=== PATIENT | male | born 1960 | race Caucasian/White ===

== ENCOUNTER 2018-12-03 11:50 | Inpatient (IN) | payer BC ==
[~2018-12-03 11:50] MED LIST: DESFLURANE 15 MIN; GLYCOPYRROLATE 0.4 MG INJ; LIDOCAINE 2% (SDV) 5 ML INJ; NEOSTIGMINE 3 MG/3 ML SYRINGE; ROCURONIUM 50 MG INJ
[2018-12-03] MEDS: ACETAMINOPHEN 1000MG/100ML IV 100 ML IVPB (14:15)
[2018-12-03] MEDS ORDERED: PROPOFOL 20 ML (15:26)
[2018-12-03] MEDS ORDERED: ROCURONIUM 50 MG INJ (15:26)
[2018-12-03] MEDS ORDERED: MIDAZOLAM 1 MG/ML 2 ML INJ (15:26)
[2018-12-03] MEDS: ALBUTEROL 0.083% (NEB) 2.5 MG/3 ML AMP HHN (15:28)
[2018-12-03] MEDS ORDERED: MEPERIDINE 25 MG INJ IV (15:30)
[2018-12-03] MEDS ORDERED: ALBUTEROL 0.083% (NEB) 2.5 MG/3 ML AMP HHN (15:30)
[2018-12-03] MEDS ORDERED: LABETALOL HCL 20MG INJ IV (15:30)
[2018-12-03] MEDS ORDERED: hydrALAzine 20 MG INJ IV (15:30)
[2018-12-03] MEDS ORDERED: ONDANSETRON 4 MG INJ IV (15:30)
[2018-12-03] MEDS ORDERED: HYDROmorphONE 0.5 MG/0.5 ML SYG IV ×3 (15:30)
[2018-12-03] MEDS ORDERED: CEFAZOLIN 1 GM INJ (18:15)
[2018-12-03] MEDS ORDERED: ONDANSETRON 4 MG INJ (18:15)
[2018-12-03] MEDS ORDERED: DEXAMETHASONE 4 MG/ML 5 ML INJ ×2 (18:15→20:26)
[2018-12-03] MEDS ORDERED: LABETALOL HCL 20MG INJ ×2 (18:17→18:55)
[2018-12-03] MEDS ORDERED: BUPIVACAINE 0.5%/EPI (SDV) 30 ML INJ (18:37)
[2018-12-03] MEDS: HEPARIN 1000 UNITS/ML 10 ML INJ (18:50)
[2018-12-03] MEDS: THROMBIN (BOVINE) 5,000 UNIT VIAL TP (18:50)
[2018-12-03] MEDS: GELATIN SIZE 100 SPONGE (18:50)
[2018-12-03] MEDS: CEFAZOLIN 1 GM INJ (18:50)
[2018-12-03] MEDS ORDERED: NACL 0.9% 3 ML SYG IV (19:00)
[2018-12-03] MEDS ORDERED: HYDROCODONE/APAP (5/325) TAB PO (19:00)
[2018-12-03] MEDS ORDERED: NALOXONE (0.4 MG/ML) INJ IV (19:00)
[2018-12-03] MEDS: DOCUSATE SODIUM 100 MG CAP PO ×2 (19:00→23:07)
[2018-12-03] MEDS ORDERED: ESMOLOL 10 ML (19:37)
[2018-12-03] MEDS ORDERED: ROPIVACAINE 0.5 % 30 ML VIAL (20:26)
[2018-12-03] MEDS ORDERED: FENTAnyl 50 MCG/ML VIAL (21:12)
[2018-12-03] MEDS: HYDROmorphONE 0.2 MG/ML PCA IV (22:14)
[2018-12-03] MEDS: HYDROmorphONE 1 MG/ML SYG IV (22:27)
[2018-12-03] MEDS ORDERED: KETOROLAC 60 MG INJ IM (23:00)
[2018-12-03] MEDS: KETOROLAC 30 MG INJ IV (23:11)
[2018-12-04] MEDS: ONDANSETRON 4 MG INJ IV (00:48)
[2018-12-04] MEDS: SOD CHLORIDE 0.9% 1,000 ML IV ×3 (00:49→21:43)
[2018-12-04] MEDS: CEFAZOLIN 2 GM/50 ML (PMX) 50 ML IVPB ×4 (00:59→21:37)
[2018-12-04] MEDS: HYDROmorphONE 0.2 MG/ML PCA IV ×3 (02:23→21:14)
[2018-12-04 05:56] LABS: HEMATOCRIT 35.8 % (42.0-52.0); HEMOGLOBIN 11.8 g/dl (14.0-18.0)
[2018-12-04 06:20] LABS: ANION GAP 4 (5-13); BLOOD UREA NITROGEN 17 mg/dl (7-20); CALCIUM 8.5 mg/dl (8.4-10.2); CARBON DIOXIDE 27 mmol/L (21-31); CHLORIDE 106 mmol/L (97-110); CREATININE 0.65 mg/dl (0.61-1.24); Estimated GFR > 60 mL/min (>60); GLUCOSE 143 mg/dl (70-220); POTASSIUM 4.7 mmol/L (3.5-5.1); SODIUM 137 mmol/L (135-144)
[2018-12-04] MEDS: KETOROLAC 30 MG INJ IV ×2 (07:48→14:38)
[2018-12-04] MEDS: DOCUSATE SODIUM 100 MG CAP PO ×2 (09:16→21:37)
[2018-12-04] MEDS ORDERED: ROPIVACAINE 0.5 % 30 ML VIAL ×2 (14:42→15:03)
[2018-12-04] MEDS ORDERED: FENTAnyl 50 MCG/ML VIAL ×4 (15:22→19:10)
[2018-12-04] MEDS ORDERED: GLYCOPYRROLATE 0.4 MG INJ (15:22)
[2018-12-04] MEDS ORDERED: ROCURONIUM 50 MG INJ (15:22)
[2018-12-04] MEDS ORDERED: CEFAZOLIN 1 GM INJ (15:22)
[2018-12-04] MEDS ORDERED: SUCCINYLCHOLINE CHLORIDE 100 MG/5 ML SYG IV (15:22)
[2018-12-04] MEDS ORDERED: NEOSTIGMINE 3 MG/3 ML SYRINGE (15:22)
[2018-12-04] MEDS ORDERED: PROPOFOL 20 ML (15:22)
[2018-12-04] MEDS ORDERED: DEXAMETHASONE 4 MG/ML 5 ML INJ (15:23)
[2018-12-04] MEDS ORDERED: METOCLOPRAMIDE 10 MG INJ (15:23)
[2018-12-04] MEDS ORDERED: ONDANSETRON 4 MG INJ (15:23)
[2018-12-04] MEDS ORDERED: MIDAZOLAM 1 MG/ML 2 ML INJ (15:23)
[2018-12-04] MEDS ORDERED: LIDOCAINE 100 MG SYRINGE (15:24)
[2018-12-04] MEDS: ROPIVACAINE 0.5 % 30 ML VIAL INJ (16:17)
[2018-12-04] MEDS: POLYMYXIN/BACITRACIN 1L IRRIG (16:18)
[2018-12-04] MEDS ORDERED: THROMBIN 5000 UNIT VIAL (16:30)
[2018-12-04] MEDS: GELATIN SIZE 100 SPONGE (16:38)
[2018-12-04] MEDS: THROMBIN 5000 UNIT VIAL TOP (16:39)
[2018-12-04] MEDS ORDERED: LABETALOL HCL 20MG INJ IV (17:00)
[2018-12-04] MEDS ORDERED: HALOPERIDOL 5 MG INJ IV (17:00)
[2018-12-04] MEDS ORDERED: hydrALAzine 20 MG INJ IV (17:00)
[2018-12-04] MEDS ORDERED: HYDROmorphONE 1 MG/5 ML IV SYRINGE IV (17:00)
[2018-12-04] MEDS ORDERED: OXYCODONE/ACETAMINOPHEN (5/325) TAB PO (17:00)
[2018-12-04] MEDS ORDERED: METOCLOPRAMIDE 10 MG INJ IV (17:00)
[2018-12-04] MEDS ORDERED: LORAZEPAM 2 MG INJ IV (17:00)
[2018-12-04] MEDS ORDERED: ALBUTEROL 0.083% (NEB) 2.5 MG/3 ML AMP HHN (17:00)
[2018-12-04] MEDS ORDERED: FENTAnyl 50 MCG/ML VIAL IV (17:00)
[2018-12-04] MEDS ORDERED: ONDANSETRON 4 MG INJ IV (17:00)
[2018-12-04] MEDS ORDERED: morphine (1 MG/ML) 10ML SYRINGE IV (17:00)
[2018-12-04] MEDS ORDERED: MEPERIDINE 25 MG INJ IV (17:00)
[2018-12-04] MEDS: LORAZEPAM 1 MG TAB PO (21:37)
[2018-12-05] MEDS: LORAZEPAM 1 MG TAB PO ×5 (01:15→20:01)
[2018-12-05] MEDS: HYDROmorphONE 0.2 MG/ML PCA IV ×5 (03:25→22:46)
[2018-12-05] MEDS: KETOROLAC 30 MG INJ IV ×4 (03:39→22:31)
[2018-12-05 05:24] LABS: ADD MAN DIFF? NO
[2018-12-05 05:29] LABS: BASOPHILS % 0.1 % (0.0-2.0); HEMATOCRIT 29.3 % (42.0-52.0); HEMOGLOBIN 9.7 g/dl (14.0-18.0); LYMPHOCYTES # 0.8 10^3/ul (0.8-2.9); MEAN CORPUSCULAR HEMOGLOBIN 29.6 pg (29.0-33.0); MEAN CORPUSCULAR HGB CONC 33.1 g/dl (32.0-37.0); MEAN CORPUSCULAR VOLUME 89.3 fl (82.0-101.0); MEAN PLATELET VOLUME 10.1 fl (7.4-10.4); MONOCYTE # 0.9 10^3/ul (0.3-0.9); MONOCYTES % 5.7 % (0.0-11.0); NEUTROPHIL # 14.2 10^3/ul (1.6-7.5); NEUTROPHILS % 88.8 % (39.0-77.0); PLATELET COUNT 170 10^3/UL (140-415); RED BLOOD COUNT 3.28 10^6/ul (4.70-6.10); RED CELL DISTRIBUTION WIDTH 12.4 % (11.5-14.5)
[2018-12-05 05:57] LABS: ALANINE AMINOTRANSFERASE 22 IU/L (13-69); ALBUMIN 2.9 g/dl (3.3-4.9); ALBUMIN/GLOBULIN RATIO 1.11; ALKALINE PHOSPHATASE 43 IU/L (42-121); ANION GAP 10 (5-13); ASPARTATE AMINO TRANSFERASE 31 IU/L (15-46); BLOOD UREA NITROGEN 17 mg/dl (7-20); CALCIUM 8.2 mg/dl (8.4-10.2); CARBON DIOXIDE 26 mmol/L (21-31); CHLORIDE 102 mmol/L (97-110); CREATININE 0.64 mg/dl (0.61-1.24); Estimated GFR > 60 mL/min (>60); GLUCOSE 104 mg/dl (70-220); POTASSIUM 4.4 mmol/L (3.5-5.1); SODIUM 138 mmol/L (135-144); TOTAL PROTEIN 5.5 g/dl (6.1-8.1)
[2018-12-05] MEDS: CEFAZOLIN 2 GM/50 ML (PMX) 50 ML IVPB ×3 (06:01→21:25)
[2018-12-05] MEDS: DOCUSATE SODIUM 100 MG CAP PO ×2 (08:06→20:40)
[2018-12-05] MEDS: SOD CHLORIDE 0.9% 1,000 ML IV ×3 (08:10→21:00)
[2018-12-05] MEDS: ONDANSETRON 4 MG INJ IV ×2 (08:28→18:07)
[2018-12-05] MEDS ORDERED: HYDROmorphONE 0.2 MG/ML PCA IV (15:00)
[2018-12-05] MEDS: AMITRIPTYLINE 25 MG TAB PO (20:40)
[2018-12-06] MEDS: LORAZEPAM 1 MG TAB PO ×2 (02:07→09:52)
[2018-12-06] MEDS: HYDROmorphONE 0.2 MG/ML PCA IV ×4 (04:49→21:16)
[2018-12-06] MEDS: KETOROLAC 30 MG INJ IV ×3 (05:23→17:24)
[2018-12-06] MEDS: CEFAZOLIN 2 GM/50 ML (PMX) 50 ML IVPB ×3 (05:23→21:58)
[2018-12-06 05:44] LABS: ADD MAN DIFF? NO
[2018-12-06 05:47] LABS: WHITE BLOOD COUNT 7.3 10^3/ul (4.8-10.8)
[2018-12-06 05:47] LABS: BASOPHILS % 0.1 % (0.0-2.0); EOSINOPHILS % 0.4 % (0.0-7.0); HEMATOCRIT 28.6 % (42.0-52.0); HEMOGLOBIN 9.4 g/dl (14.0-18.0); LYMPHOCYTES # 1.5 10^3/ul (0.8-2.9); LYMPHOCYTES % 20.5 % (15.0-51.0); MEAN CORPUSCULAR HEMOGLOBIN 29.7 pg (29.0-33.0); MEAN CORPUSCULAR HGB CONC 32.9 g/dl (32.0-37.0); MEAN CORPUSCULAR VOLUME 90.2 fl (82.0-101.0); MONOCYTE # 0.5 10^3/ul (0.3-0.9); MONOCYTES % 7.4 % (0.0-11.0); NEUTROPHIL # 5.2 10^3/ul (1.6-7.5); NEUTROPHILS % 71.2 % (39.0-77.0); PLATELET COUNT 151 10^3/UL (140-415); RED BLOOD COUNT 3.17 10^6/ul (4.70-6.10); RED CELL DISTRIBUTION WIDTH 12.6 % (11.5-14.5)
[2018-12-06 06:22] LABS: ANION GAP 4 (5-13); BLOOD UREA NITROGEN 13 mg/dl (7-20); CARBON DIOXIDE 27 mmol/L (21-31); CHLORIDE 107 mmol/L (97-110); CREATININE 0.65 mg/dl (0.61-1.24); Estimated GFR > 60 mL/min (>60); GLUCOSE 82 mg/dl (70-220); POTASSIUM 3.8 mmol/L (3.5-5.1); SODIUM 138 mmol/L (135-144)
[2018-12-06] MEDS: SOD CHLORIDE 0.9% 1,000 ML IV ×2 (08:58→22:30)
[2018-12-06] MEDS: DOCUSATE SODIUM 100 MG CAP PO ×2 (08:58→20:13)
[2018-12-06] MEDS: LORAZEPAM 2 MG INJ IV ×2 (13:58→22:05)
[2018-12-06] MEDS: hydrALAzine 20 MG INJ IV (15:25)
[2018-12-06] MEDS ORDERED: HYDROmorphONE 1 MG/ML SYG IV (17:30)
[2018-12-06] MEDS: HYDROmorphONE 1 MG/ML SYG IV (17:38)
[2018-12-06] MEDS: AMITRIPTYLINE 25 MG TAB PO (20:13)
[2018-12-07] MEDS: HYDROmorphONE 0.2 MG/ML PCA IV ×2 (00:03→00:35)
[2018-12-07] MEDS: LORAZEPAM 2 MG INJ IV (03:35)
[2018-12-07] MEDS: SOD CHLORIDE 0.9% 1,000 ML IV ×3 (04:00→15:29)
[2018-12-07 06:12] LABS: ADD MAN DIFF? NO
[2018-12-07 06:16] LABS: WHITE BLOOD COUNT 7.9 10^3/ul (4.8-10.8)
[2018-12-07 06:16] LABS: BASOPHILS % 0.4 % (0.0-2.0); EOSINOPHILS # 0.2 10^3/ul (0.0-0.5); EOSINOPHILS % 2.9 % (0.0-7.0); HEMATOCRIT 29.3 % (42.0-52.0); LYMPHOCYTES # 1.1 10^3/ul (0.8-2.9); LYMPHOCYTES % 13.9 % (15.0-51.0); MEAN CORPUSCULAR HEMOGLOBIN 29.9 pg (29.0-33.0); MEAN CORPUSCULAR HGB CONC 34.1 g/dl (32.0-37.0); MEAN CORPUSCULAR VOLUME 87.7 fl (82.0-101.0); MEAN PLATELET VOLUME 9.6 fl (7.4-10.4); MONOCYTE # 0.5 10^3/ul (0.3-0.9); MONOCYTES % 6.8 % (0.0-11.0); NEUTROPHILS % 75.6 % (39.0-77.0); PLATELET COUNT 188 10^3/UL (140-415); RED BLOOD COUNT 3.34 10^6/ul (4.70-6.10)
[2018-12-07 07:09] LABS: ANION GAP 5 (5-13); BLOOD UREA NITROGEN 7 mg/dl (7-20); CALCIUM 8.4 mg/dl (8.4-10.2); CARBON DIOXIDE 30 mmol/L (21-31); CHLORIDE 101 mmol/L (97-110); CREATININE 0.61 mg/dl (0.61-1.24); Estimated GFR > 60 mL/min (>60); GLUCOSE 74 mg/dl (70-220); POTASSIUM 3.5 mmol/L (3.5-5.1); SODIUM 136 mmol/L (135-144)
[2018-12-07] MEDS ORDERED: NALOXONE (0.4 MG/ML) INJ IV (09:00)
[2018-12-07] MEDS: FENTAnyl (DRIP) 1000 mcg/100mL 100 ML IV (10:08)
[2018-12-07] MEDS: CEFAZOLIN 2 GM/50 ML (PMX) 50 ML IVPB (10:09)
[2018-12-07] MEDS: DOCUSATE SODIUM 100 MG CAP PO ×2 (13:59→21:35)
[2018-12-07] MEDS: QUETIAPINE 25 MG TAB PO ×2 (13:59→21:36)
[2018-12-07] MEDS: hydrALAzine 20 MG INJ IV (21:35)
[2018-12-08] MEDS: SOD CHLORIDE 0.9% 1,000 ML IV ×2 (02:35→11:48)
[2018-12-08 05:27] LABS: ADD MAN DIFF? NO
[2018-12-08 05:34] LABS: WHITE BLOOD COUNT 7.3 10^3/ul (4.8-10.8)
[2018-12-08 05:35] LABS: BASOPHILS % 0.4 % (0.0-2.0); EOSINOPHILS # 0.4 10^3/ul (0.0-0.5); EOSINOPHILS % 5.5 % (0.0-7.0); HEMATOCRIT 30.6 % (42.0-52.0); HEMOGLOBIN 10.6 g/dl (14.0-18.0); LYMPHOCYTES % 13.8 % (15.0-51.0); MEAN CORPUSCULAR HGB CONC 34.6 g/dl (32.0-37.0); MEAN CORPUSCULAR VOLUME 86.7 fl (82.0-101.0); MEAN PLATELET VOLUME 9.5 fl (7.4-10.4); MONOCYTE # 0.5 10^3/ul (0.3-0.9); MONOCYTES % 6.6 % (0.0-11.0); NEUTROPHIL # 5.4 10^3/ul (1.6-7.5); NEUTROPHILS % 73.3 % (39.0-77.0); PLATELET COUNT 203 10^3/UL (140-415); RED BLOOD COUNT 3.53 10^6/ul (4.70-6.10); RED CELL DISTRIBUTION WIDTH 12.1 % (11.5-14.5)
[2018-12-08 06:14] LABS: ANION GAP 11 (5-13); BLOOD UREA NITROGEN 7 mg/dl (7-20); CALCIUM 8.8 mg/dl (8.4-10.2); CARBON DIOXIDE 22 mmol/L (21-31); CHLORIDE 104 mmol/L (97-110); Estimated GFR > 60 mL/min (>60); GLUCOSE 67 mg/dl (70-220); POTASSIUM 3.5 mmol/L (3.5-5.1); SODIUM 137 mmol/L (135-144)
[2018-12-08] MEDS: FENTAnyl (DRIP) 1000 mcg/100mL 100 ML IV (07:46)
[2018-12-08] MEDS: QUETIAPINE 25 MG TAB PO ×2 (08:08→21:06)
[2018-12-08] MEDS: DOCUSATE SODIUM 100 MG CAP PO ×3 (08:08→21:00)
[2018-12-08] MEDS: HYDROmorphONE 2 MG/ML SYG IV ×3 (15:04→21:06)
[2018-12-09] MEDS: HYDROmorphONE 2 MG/ML SYG IV ×8 (00:22→21:49)
[2018-12-09 05:33] LABS: ADD MAN DIFF? NO
[2018-12-09 05:34] LABS: BASOPHILS % 0.4 % (0.0-2.0); EOSINOPHILS # 0.8 10^3/ul (0.0-0.5); EOSINOPHILS % 10.4 % (0.0-7.0); HEMATOCRIT 29.1 % (42.0-52.0); HEMOGLOBIN 9.9 g/dl (14.0-18.0); LYMPHOCYTES # 1.2 10^3/ul (0.8-2.9); LYMPHOCYTES % 15.2 % (15.0-51.0); MEAN CORPUSCULAR HEMOGLOBIN 29.6 pg (29.0-33.0); MEAN CORPUSCULAR VOLUME 86.9 fl (82.0-101.0); MEAN PLATELET VOLUME 9.4 fl (7.4-10.4); MONOCYTE # 0.7 10^3/ul (0.3-0.9); MONOCYTES % 8.5 % (0.0-11.0); NEUTROPHIL # 5.2 10^3/ul (1.6-7.5); NEUTROPHILS % 65.1 % (39.0-77.0); PLATELET COUNT 208 10^3/UL (140-415); RED BLOOD COUNT 3.35 10^6/ul (4.70-6.10); RED CELL DISTRIBUTION WIDTH 12.5 % (11.5-14.5)
[2018-12-09 06:03] LABS: ANION GAP 6 (5-13); BLOOD UREA NITROGEN 10 mg/dl (7-20); CALCIUM 8.7 mg/dl (8.4-10.2); CARBON DIOXIDE 26 mmol/L (21-31); CHLORIDE 104 mmol/L (97-110); CREATININE 0.59 mg/dl (0.61-1.24); Estimated GFR > 60 mL/min (>60); GLUCOSE 104 mg/dl (70-220); POTASSIUM 3.6 mmol/L (3.5-5.1); SODIUM 136 mmol/L (135-144)
[2018-12-09] MEDS: QUETIAPINE 25 MG TAB PO ×2 (08:38→20:01)
[2018-12-09] MEDS: DOCUSATE SODIUM 100 MG CAP PO ×2 (08:39→20:01)
[2018-12-09] MEDS: traZODone 50 MG TAB PO (19:57)
[2018-12-10] MEDS: HYDROmorphONE 2 MG/ML SYG IV ×7 (00:46→21:47)
[2018-12-10] MEDS: DIPHENHYDRAMINE 50 MG INJ IV (02:40)
[2018-12-10 05:51] LABS: ADD MAN DIFF? NO
[2018-12-10 06:02] LABS: BASOPHILS % 0.4 % (0.0-2.0); EOSINOPHILS # 1.1 10^3/ul (0.0-0.5); EOSINOPHILS % 12.3 % (0.0-7.0); HEMATOCRIT 29.5 % (42.0-52.0); HEMOGLOBIN 9.9 g/dl (14.0-18.0); LYMPHOCYTES # 1.3 10^3/ul (0.8-2.9); LYMPHOCYTES % 15.4 % (15.0-51.0); MEAN CORPUSCULAR HEMOGLOBIN 29.6 pg (29.0-33.0); MEAN CORPUSCULAR HGB CONC 33.6 g/dl (32.0-37.0); MEAN CORPUSCULAR VOLUME 88.1 fl (82.0-101.0); MEAN PLATELET VOLUME 9.5 fl (7.4-10.4); MONOCYTE # 0.9 10^3/ul (0.3-0.9); MONOCYTES % 10.2 % (0.0-11.0); NEUTROPHIL # 5.3 10^3/ul (1.6-7.5); NEUTROPHILS % 61.3 % (39.0-77.0); PLATELET COUNT 236 10^3/UL (140-415); RED BLOOD COUNT 3.35 10^6/ul (4.70-6.10); RED CELL DISTRIBUTION WIDTH 12.8 % (11.5-14.5)
[2018-12-10 06:02] LABS: WHITE BLOOD COUNT 8.6 10^3/ul (4.8-10.8)
[2018-12-10 06:47] LABS: ANION GAP 7 (5-13); BLOOD UREA NITROGEN 12 mg/dl (7-20); CARBON DIOXIDE 29 mmol/L (21-31); CHLORIDE 102 mmol/L (97-110); CREATININE 0.61 mg/dl (0.61-1.24); Estimated GFR > 60 mL/min (>60); GLUCOSE 116 mg/dl (70-220); POTASSIUM 3.8 mmol/L (3.5-5.1); SODIUM 138 mmol/L (135-144)
[2018-12-10] MEDS: DOCUSATE SODIUM 100 MG CAP PO ×3 (08:36→21:00)
[2018-12-10] MEDS: QUETIAPINE 25 MG TAB PO ×2 (08:37→21:00)
[2018-12-10] MEDS: traZODone 50 MG TAB PO (20:42)
[2018-12-11] MEDS: HYDROmorphONE 2 MG/ML SYG IV ×8 (00:55→21:41)
[2018-12-11] MEDS: DIPHENHYDRAMINE 50 MG INJ IV (05:12)
[2018-12-11 06:06] LABS: ADD MAN DIFF? NO
[2018-12-11 06:12] LABS: BASOPHILS % 0.5 % (0.0-2.0); EOSINOPHILS # 0.9 10^3/ul (0.0-0.5); EOSINOPHILS % 11.6 % (0.0-7.0); HEMATOCRIT 30.1 % (42.0-52.0); LYMPHOCYTES # 1.7 10^3/ul (0.8-2.9); LYMPHOCYTES % 21.6 % (15.0-51.0); MEAN CORPUSCULAR HEMOGLOBIN 29.6 pg (29.0-33.0); MEAN CORPUSCULAR HGB CONC 33.2 g/dl (32.0-37.0); MEAN CORPUSCULAR VOLUME 89.1 fl (82.0-101.0); MEAN PLATELET VOLUME 9.3 fl (7.4-10.4); MONOCYTE # 1.1 10^3/ul (0.3-0.9); MONOCYTES % 13.7 % (0.0-11.0); NEUTROPHIL # 4.2 10^3/ul (1.6-7.5); NEUTROPHILS % 52.2 % (39.0-77.0); PLATELET COUNT 247 10^3/UL (140-415); RED BLOOD COUNT 3.38 10^6/ul (4.70-6.10); RED CELL DISTRIBUTION WIDTH 12.9 % (11.5-14.5)
[2018-12-11 07:03] LABS: ANION GAP 7 (5-13); BLOOD UREA NITROGEN 11 mg/dl (7-20); CALCIUM 9.1 mg/dl (8.4-10.2); CARBON DIOXIDE 33 mmol/L (21-31); CHLORIDE 99 mmol/L (97-110); CREATININE 0.64 mg/dl (0.61-1.24); Estimated GFR > 60 mL/min (>60); GLUCOSE 96 mg/dl (70-220); POTASSIUM 4.4 mmol/L (3.5-5.1); SODIUM 139 mmol/L (135-144)
[2018-12-11] MEDS: QUETIAPINE 25 MG TAB PO ×2 (09:33→21:38)
[2018-12-11] MEDS: DOCUSATE SODIUM 100 MG CAP PO ×2 (09:33→21:38)
[2018-12-11] MEDS: AL HYDROX/MG HYDROX/SIMETH 30 ML CUP PO (09:33)
[2018-12-11] MEDS: traZODone 50 MG TAB PO (21:38)
[2018-12-12] MEDS: HYDROmorphONE 2 MG/ML SYG IV ×7 (00:47→21:22)
[2018-12-12] MEDS: oxyCODONE (CR) 10 MG TAB [oxyCONTIN] PO ×2 (02:09→20:23)
[2018-12-12 06:05] LABS: ADD MAN DIFF? NO
[2018-12-12 06:10] LABS: WHITE BLOOD COUNT 6.4 10^3/ul (4.8-10.8)
[2018-12-12 06:10] LABS: BASOPHILS % 0.5 % (0.0-2.0); EOSINOPHILS # 0.6 10^3/ul (0.0-0.5); EOSINOPHILS % 9.1 % (0.0-7.0); HEMATOCRIT 29.5 % (42.0-52.0); HEMOGLOBIN 9.8 g/dl (14.0-18.0); LYMPHOCYTES % 16.4 % (15.0-51.0); MEAN CORPUSCULAR HEMOGLOBIN 29.9 pg (29.0-33.0); MEAN CORPUSCULAR HGB CONC 33.2 g/dl (32.0-37.0); MEAN CORPUSCULAR VOLUME 89.9 fl (82.0-101.0); MEAN PLATELET VOLUME 9.4 fl (7.4-10.4); NEUTROPHIL # 3.7 10^3/ul (1.6-7.5); NEUTROPHILS % 58.5 % (39.0-77.0); PLATELET COUNT 258 10^3/UL (140-415); RED BLOOD COUNT 3.28 10^6/ul (4.70-6.10); RED CELL DISTRIBUTION WIDTH 12.7 % (11.5-14.5)
[2018-12-12 06:57] LABS: ANION GAP 7 (5-13); BLOOD UREA NITROGEN 11 mg/dl (7-20); CALCIUM 9.1 mg/dl (8.4-10.2); CARBON DIOXIDE 31 mmol/L (21-31); CHLORIDE 100 mmol/L (97-110); CREATININE 0.58 mg/dl (0.61-1.24); Estimated GFR > 60 mL/min (>60); GLUCOSE 99 mg/dl (70-220); SODIUM 138 mmol/L (135-144)
[2018-12-12] MEDS: DOCUSATE SODIUM 100 MG CAP PO ×2 (08:09→20:21)
[2018-12-12] MEDS: QUETIAPINE 25 MG TAB PO ×2 (08:09→20:21)
[2018-12-12] MEDS: traZODone 50 MG TAB PO (21:28)
[2018-12-13] MEDS: ZOLPIDEM 5 MG TAB PO ×2 (00:22→20:17)
[2018-12-13] MEDS: HYDROmorphONE 2 MG/ML SYG IV ×8 (00:23→22:56)
[2018-12-13] MEDS: CYCLOBENZAPRINE 10 MG TAB PO (00:24)
[2018-12-13 05:39] LABS: ADD MAN DIFF? NO
[2018-12-13 05:47] LABS: BASOPHILS % 0.4 % (0.0-2.0); EOSINOPHILS # 0.8 10^3/ul (0.0-0.5); EOSINOPHILS % 8.8 % (0.0-7.0); HEMATOCRIT 34.2 % (42.0-52.0); LYMPHOCYTES # 2.1 10^3/ul (0.8-2.9); LYMPHOCYTES % 23.7 % (15.0-51.0); MEAN CORPUSCULAR HEMOGLOBIN 29.5 pg (29.0-33.0); MEAN CORPUSCULAR HGB CONC 32.2 g/dl (32.0-37.0); MEAN CORPUSCULAR VOLUME 91.7 fl (82.0-101.0); MEAN PLATELET VOLUME 9.3 fl (7.4-10.4); MONOCYTE # 1.2 10^3/ul (0.3-0.9); MONOCYTES % 12.8 % (0.0-11.0); NEUTROPHIL # 4.8 10^3/ul (1.6-7.5); NEUTROPHILS % 53.9 % (39.0-77.0); PLATELET COUNT 322 10^3/UL (140-415); RED BLOOD COUNT 3.73 10^6/ul (4.70-6.10)
[2018-12-13 06:15] LABS: ANION GAP 12 (5-13); BLOOD UREA NITROGEN 12 mg/dl (7-20); CALCIUM 9.4 mg/dl (8.4-10.2); CARBON DIOXIDE 31 mmol/L (21-31); CHLORIDE 97 mmol/L (97-110); CREATININE 0.76 mg/dl (0.61-1.24); Estimated GFR > 60 mL/min (>60); GLUCOSE 119 mg/dl (70-220); SODIUM 140 mmol/L (135-144)
[2018-12-13] MEDS: QUETIAPINE 25 MG TAB PO ×2 (08:35→20:17)
[2018-12-13] MEDS: DOCUSATE SODIUM 100 MG CAP PO ×2 (08:35→20:17)
[2018-12-13] MEDS: AL HYDROX/MG HYDROX/SIMETH 30 ML CUP PO (08:36)
[2018-12-13] MEDS: oxyCODONE (CR) 15 MG TAB [oxyCONTIN] PO ×3 (08:36→20:18)
[2018-12-13] MEDS: SENNA/DOCUSATE NA (8.6MG/50MG) TAB PO (20:17)
[2018-12-14] MEDS: HYDROmorphONE 2 MG/ML SYG IV ×6 (02:05→20:04)
[2018-12-14] MEDS: QUETIAPINE 25 MG TAB PO ×3 (08:53→21:00)
[2018-12-14] MEDS: DOCUSATE SODIUM 100 MG CAP PO ×2 (08:54→21:00)
[2018-12-14] MEDS: SENNA/DOCUSATE NA (8.6MG/50MG) TAB PO ×2 (08:54→21:00)
[2018-12-14] MEDS: oxyCODONE (CR) 15 MG TAB [oxyCONTIN] PO ×2 (11:06→21:07)
[2018-12-14 13:33] LABS: ADD MAN DIFF? NO
[2018-12-14 13:36] LABS: WHITE BLOOD COUNT 5.6 10^3/ul (4.8-10.8)
[2018-12-14 13:36] LABS: BASOPHIL # 0.1 10^3/ul (0.0-0.1); BASOPHILS % 0.9 % (0.0-2.0); EOSINOPHILS # 0.5 10^3/ul (0.0-0.5); EOSINOPHILS % 8.1 % (0.0-7.0); HEMATOCRIT 31.3 % (42.0-52.0); HEMOGLOBIN 10.2 g/dl (14.0-18.0); LYMPHOCYTES # 1.1 10^3/ul (0.8-2.9); LYMPHOCYTES % 19.5 % (15.0-51.0); MEAN CORPUSCULAR HEMOGLOBIN 29.4 pg (29.0-33.0); MEAN CORPUSCULAR HGB CONC 32.6 g/dl (32.0-37.0); MEAN CORPUSCULAR VOLUME 90.2 fl (82.0-101.0); MEAN PLATELET VOLUME 9.2 fl (7.4-10.4); MONOCYTE # 0.7 10^3/ul (0.3-0.9); MONOCYTES % 12.5 % (0.0-11.0); NEUTROPHIL # 3.3 10^3/ul (1.6-7.5); NEUTROPHILS % 58.6 % (39.0-77.0); PLATELET COUNT 289 10^3/UL (140-415); RED BLOOD COUNT 3.47 10^6/ul (4.70-6.10); RED CELL DISTRIBUTION WIDTH 12.9 % (11.5-14.5)
[2018-12-14 13:57] LABS: ANION GAP 5 (5-13); BLOOD UREA NITROGEN 16 mg/dl (7-20); CALCIUM 9.1 mg/dl (8.4-10.2); CARBON DIOXIDE 33 mmol/L (21-31); CHLORIDE 99 mmol/L (97-110); CREATININE 0.63 mg/dl (0.61-1.24); Estimated GFR > 60 mL/min (>60); GLUCOSE 101 mg/dl (70-220); POTASSIUM 4.1 mmol/L (3.5-5.1); SODIUM 137 mmol/L (135-144)
[2018-12-14] MEDS: CYCLOBENZAPRINE 10 MG TAB PO (15:47)
[2018-12-14] MEDS: ZOLPIDEM 5 MG TAB PO (21:44)
[2018-12-15] MEDS: HYDROmorphONE 2 MG/ML SYG IV ×8 (00:56→22:29)
[2018-12-15 05:06] LABS: ADD MAN DIFF? NO
[2018-12-15 05:09] LABS: BASOPHILS % 0.4 % (0.0-2.0); EOSINOPHILS # 0.5 10^3/ul (0.0-0.5); EOSINOPHILS % 6.8 % (0.0-7.0); HEMATOCRIT 32.4 % (42.0-52.0); HEMOGLOBIN 10.7 g/dl (14.0-18.0); LYMPHOCYTES # 1.5 10^3/ul (0.8-2.9); LYMPHOCYTES % 22.7 % (15.0-51.0); MEAN CORPUSCULAR HEMOGLOBIN 29.5 pg (29.0-33.0); MEAN CORPUSCULAR VOLUME 89.3 fl (82.0-101.0); MEAN PLATELET VOLUME 9.4 fl (7.4-10.4); MONOCYTE # 0.7 10^3/ul (0.3-0.9); MONOCYTES % 9.9 % (0.0-11.0); NEUTROPHILS % 60.1 % (39.0-77.0); PLATELET COUNT 317 10^3/UL (140-415); RED BLOOD COUNT 3.63 10^6/ul (4.70-6.10); RED CELL DISTRIBUTION WIDTH 12.9 % (11.5-14.5)
[2018-12-15 05:09] LABS: WHITE BLOOD COUNT 6.7 10^3/ul (4.8-10.8)
[2018-12-15 05:37] LABS: ANION GAP 5 (5-13); BLOOD UREA NITROGEN 16 mg/dl (7-20); CALCIUM 9.3 mg/dl (8.4-10.2); CARBON DIOXIDE 32 mmol/L (21-31); CHLORIDE 102 mmol/L (97-110); CREATININE 0.69 mg/dl (0.61-1.24); Estimated GFR > 60 mL/min (>60); GLUCOSE 105 mg/dl (70-220); POTASSIUM 4.4 mmol/L (3.5-5.1); SODIUM 139 mmol/L (135-144)
[2018-12-15] MEDS: SENNA/DOCUSATE NA (8.6MG/50MG) TAB PO ×3 (09:00→20:32)
[2018-12-15] MEDS: QUETIAPINE 25 MG TAB PO ×3 (09:00→20:32)
[2018-12-15] MEDS: DOCUSATE SODIUM 100 MG CAP PO ×2 (09:02→20:32)
[2018-12-15] MEDS: oxyCODONE (CR) 15 MG TAB [oxyCONTIN] PO ×2 (09:03→20:32)
[2018-12-15] MEDS: CYCLOBENZAPRINE 10 MG TAB PO ×2 (10:00→19:24)
[2018-12-15] MEDS: ZOLPIDEM 5 MG TAB PO (23:23)
[2018-12-16] MEDS: HYDROmorphONE 2 MG/ML SYG IV ×7 (01:30→20:26)
[2018-12-16] MEDS: CYCLOBENZAPRINE 10 MG TAB PO ×3 (03:31→19:54)
[2018-12-16] MEDS: SENNA/DOCUSATE NA (8.6MG/50MG) TAB PO ×2 (08:00→21:27)
[2018-12-16] MEDS: oxyCODONE (CR) 15 MG TAB [oxyCONTIN] PO ×2 (08:00→21:27)
[2018-12-16] MEDS: QUETIAPINE 25 MG TAB PO ×2 (08:00→21:00)
[2018-12-16] MEDS: DOCUSATE SODIUM 100 MG CAP PO ×2 (08:00→21:27)
[2018-12-17] MEDS: HYDROmorphONE 2 MG/ML SYG IV ×7 (02:46→22:02)
[2018-12-17] MEDS: CYCLOBENZAPRINE 10 MG TAB PO ×3 (03:52→20:13)
[2018-12-17] MEDS: oxyCODONE (CR) 15 MG TAB [oxyCONTIN] PO ×2 (08:21→20:08)
[2018-12-17] MEDS: SENNA/DOCUSATE NA (8.6MG/50MG) TAB PO ×2 (08:21→20:14)
[2018-12-17] MEDS: QUETIAPINE 25 MG TAB PO ×2 (08:22→20:14)
[2018-12-17] MEDS: DOCUSATE SODIUM 100 MG CAP PO ×2 (08:22→20:07)
[2018-12-17] MEDS: ZOLPIDEM 5 MG TAB PO (23:46)
[2018-12-18] MEDS: HYDROmorphONE 2 MG/ML SYG IV ×6 (01:03→16:13)
[2018-12-18] MEDS: oxyCODONE (CR) 15 MG TAB [oxyCONTIN] PO (08:20)
[2018-12-18] MEDS: DOCUSATE SODIUM 100 MG CAP PO (08:20)
[2018-12-18] MEDS: CYCLOBENZAPRINE 10 MG TAB PO (08:20)
[2018-12-18] MEDS: SENNA/DOCUSATE NA (8.6MG/50MG) TAB PO (08:21)
[2018-12-18] MEDS: QUETIAPINE 25 MG TAB PO (08:21)
== END 2018-12-18 17:36 | disposition home or self-care (01) | DRG 460 ==
LOC: REC 11:50 → 6WM 12-06 21:34 → ICU 12-07 09:22 → PP2 12-09 02:25 → ICU 21:24
PROC: 0SG10A0 Fusion of 2 or more Lumbar Vertebral Joints with Interbody Fusion Device, Anterior Approach, Anterior Column, Open Approach (ICD-10-PCS; principal; 2018-12-03 15:00)
PROC: 0SB20ZZ Excision of Lumbar Vertebral Disc, Open Approach (ICD-10-PCS; 2018-12-03 15:00)
PROC: 0SH304Z Insertion of Internal Fixation Device into Lumbosacral Joint, Open Approach (ICD-10-PCS; 2018-12-03 17:34)
PROC: 0SH004Z Insertion of Internal Fixation Device into Lumbar Vertebral Joint, Open Approach (ICD-10-PCS; 2018-12-03 17:34)
DX: M43.16 Spondylolisthesis, lumbar region (principal); M48.061 Spinal stenosis, lumbar region without neurogenic claudication; M54.16 Radiculopathy, lumbar region; J45.909 Unspecified asthma, uncomplicated; I10 Essential (primary) hypertension; E78.5 Hyperlipidemia, unspecified; M19.90 Unspecified osteoarthritis, unspecified site; G62.9 Polyneuropathy, unspecified; R41.0 Disorientation, unspecified; M48.46XA Fatigue fracture of vertebra, lumbar region, initial encounter for fracture; Z86.73 Personal history of transient ischemic attack (TIA), and cerebral infarction without residual deficits
CPT/HCPCS: 71045; 72114; 72131; 74176; 80048; 80053; 85014; 85018; 85025; 86850; 86900; 86901; 86920; 87081; 88304; 94664; 97116; 97161; 97530